=== PATIENT | female | born 1985 | race Caucasian/White ===

== ENCOUNTER 2017-11-17 13:37 | Emergency (ER) | payer SELFPAY ==
[~2017-11-17] VITALS: Ht 170.2 cm; Wt 65.0 kg
[2017-11-17 13:50] VITALS: BP 107/61; PULSE 80; RESP 16; TEMP 98; O2SAT 96
[2017-11-17] MEDS ORDERED: ZIPR1CAP10 PO (13:57)
[2017-11-17] MEDS ORDERED: MIRTA15 PO (13:57)
[2017-11-17] MEDS ORDERED: HYDR50TA94 PO (13:57)
[2017-11-17] MEDS ORDERED: SODIUM CHLORIDE 0.9% FLUSH 10 ML FLUSH IVF PRN (14:00)
--- NOTE | 2017-11-17 14:05 | PD ---
HPI Chief Complaint: Seizure Time Seen by Provider: 13:59 Travel History International Travel<30 days: No Contact w/Intl Traveler<30days: No Traveled to known affect area: No History of Present Illness HPI 32-year-old female presents to the emergency department via EMS for evaluation after a witnessed seizure. According to EMS, the patient Jamal Mckeon and had a seizure in the waiting room that was witnessed and lasted approximately less than 30 seconds. The patient appears to be under the influence of some sort of substance. She continually falls asleep during my exam. She does report a history of seizure disorder and states she her last seizure was yesterday. She states that she is not currently on any seizure medications. Patient is requesting a cigarette. She is also wanting to leave. However, she does not answer my questions appropriately and does not appear to be able to make this decision at this time. She does not know the year or the month and thinks the president is Cb Gruber on my initial exam. Moderate severity. PFSH Past Medical History ?: Unknown Social History Alcohol Use: No Tobacco Use: Yes Substance Use: No Allergies-Medications (Allergen,Severity, Reaction): Coded Allergies: vancomycin (Verified Allergy, Unknown, RASHES, 11/17/17) Reported Meds & Prescriptions Reported Meds & Active Scripts Active Reported Hydroxyzine HCl 50 Mg Tab 100 Mg PO TID PRN Ziprasidone 60 Mg Cap 60 Mg PO BID Mirtazapine 15 Mg Tab 15 Mg PO HS Review of Systems Except as stated in HPI: all other systems reviewed are Neg Physical Exam Exam Limitations: Intoxication, Uncooperative Narrative GENERAL: Well-nourished, well-developed female patient, afebrile. SKIN: Focused skin assessment warm/dry. HEAD: Normocephalic. Atraumatic. EYES: No scleral icterus. No injection or drainage. NECK: Supple, trachea midline. No JVD or lymphadenopathy. CARDIOVASCULAR: Regular rate and rhythm without murmurs, gallops, or rubs. RESPIRATORY: Breath sounds equal bilaterally. No accessory muscle use. Lung sounds are clear to auscultation. GASTROINTESTINAL: Abdomen soft, non-tender, nondistended. No abdominal or pelvic pain to palpation. MUSCULOSKELETAL: No cyanosis, or edema. BACK: Nontender without obvious deformity. No CVA tenderness. Data Data Last Documented VS Vital Signs Date Time Temp Pulse Resp B/P (MAP) Pulse Ox O2 Delivery O2 Flow Rate FiO2 11/17/17 13:50 98.0 80 16 107/61 (76) 96 Orders Orders Complete Blood Count With Diff (11/17/17 13:59) Alcohol (Ethanol) (11/17/17 13:59) Drug Screen, Random Urine (11/17/17 13:59) Ct Brain W/O Iv Contrast(Rout) (11/17/17 ) Blood Glucose (11/17/17 13:59) Ecg Monitoring (11/17/17 13:59) Iv Access Insert/Monitor (11/17/17 13:59) Oximetry (11/17/17 13:59) Comprehensive Metabolic Panel (11/17/17 13:59) Sodium Chloride 0.9% Flush (Ns Flush) (11/17/17 14:00) Ua Includes Microscopic (11/17/17 13:59) Magnesium (Mg) (11/17/17 13:59) Ed Urine Pregnancytest Poc (11/17/17 13:59) Nicotine 14 Mg Patch.24 Hr (Habitrol 14 (11/17/17 15:45) Labs Laboratory Tests Test 11/17/17 14:05 11/17/17 16:30 White Blood Count 6.2 TH/MM3 Red Blood Count 3.78 MIL/MM3 Hemoglobin 11.6 GM/DL Hematocrit 33.6 % Mean Corpuscular Volume 88.9 FL Mean Corpuscular Hemoglobin 30.6 PG Mean Corpuscular Hemoglobin Concent 34.5 % Red Cell Distribution Width 15.2 % Platelet Count 212 TH/MM3 Mean Platelet Volume 7.8 FL Neutrophils (%) (Auto) 36.9 % Lymphocytes (%) (Auto) 52.6 % Monocytes (%) (Auto) 7.9 % Eosinophils (%) (Auto) 2.0 % Basophils (%) (Auto) 0.6 % Neutrophils # (Auto) 2.3 TH/MM3 Lymphocytes # (Auto) 3.2 TH/MM3 Monocytes # (Auto) 0.5 TH/MM3 Eosinophils # (Auto) 0.1 TH/MM3 Basophils # (Auto) 0.0 TH/MM3 CBC Comment DIFF FINAL Differential Comment Blood Urea Nitrogen 8 MG/DL Creatinine 0.84 MG/DL Random Glucose 81 MG/DL Total Protein 6.6 GM/DL Albumin 3.6 GM/DL Calcium Level 8.7 MG/DL Magnesium Level 1.9 MG/DL Alkaline Phosphatase 57 U/L Aspartate Amino Transf (AST/SGOT) 30 U/L Alanine Aminotransferase (ALT/SGPT) 21 U/L Total Bilirubin 0.4 MG/DL Sodium Level 143 MEQ/L Potassium Level 3.6 MEQ/L Chloride Level 108 MEQ/L Carbon Dioxide Level 28.4 MEQ/L Anion Gap 7 MEQ/L Estimat Glomerular Filtration Rate 79 ML/MIN Ethyl Alcohol Level LESS THAN 3 MG/DL MDM Medical Decision Making Medical Screen Exam Complete: Yes Emergency Medical Condition: Yes Medical Record Reviewed: Yes Differential Diagnosis Breakthrough seizure versus recurrent seizures versus seizure disorder versus electrolyte abnormality versus drug intoxication Narrative Course 32-year-old female presents to the emergency department via EMS after she had a witnessed seizure. She does report a history of seizures to me. She does appear to be under the influence. CBC, CMP, magnesium, urine drug screen, UA, urine test, alcohol level are ordered and pending. CT of the brain is ordered and pending. CBC shows no acute abnormality. CMP shows no acute abnormality. Magnesium is 1.9. UA is pending. UDS is pending. UPT is negative. Alcohol level is less than [address] to have CT scan done. She is requesting to leave AGAINST MEDICAL ADVICE. On reevaluation, she is walking with a steady gait. She is alert and oriented to person, place, time. She is answering all questions appropriately. She is requesting to leave. She does know that I do not know if there is anything emergently wrong as she has not let me complete my workup. She states she understands. She does appear capable of making her own decisions at this time. AMA: The risks of leaving against medical advice without further evaluation treatment were discussed with the patient. These risks include cardiac dysfunction, cardiac dysrhythmia, possible heart attack, possible stroke or . The patient indicated understanding of these risks and appeared to have the capacity to make this decision. Diagnosis Primary Impression: Left against medical advice Disposition: 07 AGAINST MEDICAL ADVICE Camille Rebolledo November 17, 2017 14:05
[2017-11-17 14:16] LABS: AUTOMATED NEUTROPHIL # 2.3 TH/MM3 (1.8-7.7); BASOPHIL % 0.6 % (0.0-2.0); EOSINOPHIL # 0.1 TH/MM3 (0-0.4); HEMATOCRIT 33.6 % (35.0-46.0); HEMOGLOBIN 11.6 GM/DL (11.6-15.3); LYMPH % 52.6 % (9.0-44.0); LYMPHOCYTE # 3.2 TH/MM3 (1.0-4.8); MEAN CELL VOLUME 88.9 FL (80.0-100.0); MEAN CORPUSCULAR HEMOGLOBIN 30.6 PG (27.0-34.0); MEAN CORPUSCULAR HGB CONC 34.5 % (32.0-36.0); MEAN PLATELET VOLUME 7.8 FL (7.0-11.0); MONO % 7.9 % (0.0-8.0); MONOCYTE # 0.5 TH/MM3 (0-0.9); NEUT % 36.9 % (16.0-70.0); PLATELET COUNT 212 TH/MM3 (150-450); RED BLOOD COUNT 3.78 MIL/MM3 (4.00-5.30); RED CELL DISTRIBUTION WIDTH 15.2 % (11.6-17.2); WHITE BLOOD COUNT 6.2 TH/MM3 (4.0-11.0)
[2017-11-17 14:34] LABS: ALBUMIN 3.6 GM/DL (3.4-5.0); ALT (GPT) 21 U/L (10-53); AST (GOT) 30 U/L (15-37); BICARBONATE 28.4 MEQ/L (21.0-32.0); BLOOD UREA NITROGEN 8 MG/DL (7-18); CALCIUM 8.7 MG/DL (8.5-10.1); CHLORIDE 108 MEQ/L (98-107); CREATININE 0.84 MG/DL (0.50-1.00); GLOMERULAR FILTRATION RATE 79 ML/MIN (>89); GLUCOSE,RANDOM 81 MG/DL (74-106); MAGNESIUM 1.9 MG/DL (1.5-2.5); SODIUM (NA) 143 MEQ/L (136-145)
[2017-11-17 14:36] LABS: ALKALINE PHOSPHATASE 57 U/L (45-117); TOTAL BILIRUBIN ADULT 0.4 MG/DL (0.2-1.0); TOTAL PROTEIN 6.6 GM/DL (6.4-8.2)
[2017-11-17] MEDS ORDERED: NICOTINE 14 MG/24 HR PATCH T-DERMAL ONE (15:45)
[2017-11-17 17:11] LABS: BACTERIA, URINE RARE /hpf; BILIRUBIN, URINE NEG (NEG); BLOOD, URINE NEG (NEG); GLUCOSE,URINE NEG (NEG); KETONE, URINE TRACE mg/dL (NEG); MUCUS URINE MANY /lpf (OCC); NITRITE,URINE NEG (NEG); PH, URINE 5.5 (5.0-8.5); SQUAMOUS EPITHELIAL CELL URINE 44 /hpf (0-5); URINE COLOR YELLOW (YELLW/STRAW); URINE LEUKOCYTE ESTERASE LARGE (NEG)
== END 2017-11-17 17:55 | disposition left against medical advice (07) ==
LOC: NEPE 13:37
DX: G40.909 Epilepsy, unspecified, not intractable, without status epilepticus (principal); Z72.0 Tobacco use; Z79.899 Other long term (current) drug therapy
CPT/HCPCS: 80053; 80307; 81001; 83735; 84703; 85025; 99283

== ENCOUNTER 2017-12-16 15:32 | Inpatient (IN) | payer SELFPAY ==
[~2017-12-16] VITALS: Ht 170.2 cm; Wt 63.5 kg
[~2017-12-16 15:32] MED LIST: HYDR50TA94 PO; MIRTA15 PO; ZIPR1CAP10 PO
[2017-12-16 15:43] VITALS: BP 128/76; PULSE 58; RESP 16; TEMP 98.5
[2017-12-16] MEDS ORDERED: PIPERACIL-TAZO 4.5 GM PREMIX 100 ML IV STA (17:43)
[2017-12-16] MEDS ORDERED: CLINDAMYCIN INJ 900 MG in SODIUM CHLORIDE 0.9% INJ 100 ML IV STA (17:43)
[2017-12-16 18:05] VITALS: RESP 17; O2SAT 97
[2017-12-16 18:31] LABS: BASOPHIL # 0.1 TH/MM3 (0-0.2); BASOPHIL % 0.5 % (0.0-2.0); EOSINOPHIL # 0.4 TH/MM3 (0-0.4); EOSINOPHIL % 3.6 % (0.0-4.0); HEMATOCRIT 36.9 % (35.0-46.0); HEMOGLOBIN 12.6 GM/DL (11.6-15.3); LYMPH % 25.8 % (9.0-44.0); LYMPHOCYTE # 3.2 TH/MM3 (1.0-4.8); MEAN CELL VOLUME 89.2 FL (80.0-100.0); MEAN CORPUSCULAR HEMOGLOBIN 30.4 PG (27.0-34.0); MEAN CORPUSCULAR HGB CONC 34.1 % (32.0-36.0); MEAN PLATELET VOLUME 7.8 FL (7.0-11.0); MONO % 5.9 % (0.0-8.0); MONOCYTE # 0.7 TH/MM3 (0-0.9); NEUT % 64.2 % (16.0-70.0); PLATELET COUNT 217 TH/MM3 (150-450); RED BLOOD COUNT 4.14 MIL/MM3 (4.00-5.30); RED CELL DISTRIBUTION WIDTH 13.7 % (11.6-17.2); WHITE BLOOD COUNT 12.4 TH/MM3 (4.0-11.0)
[2017-12-16 18:42] LABS: ALBUMIN 3.1 GM/DL (3.4-5.0); AST (GOT) 11 U/L (15-37); BICARBONATE 27.2 MEQ/L (21.0-32.0); BLOOD UREA NITROGEN 7 MG/DL (7-18); CALCIUM 8.8 MG/DL (8.5-10.1); CHLORIDE 103 MEQ/L (98-107); GLOMERULAR FILTRATION RATE 83 ML/MIN (>89); GLUCOSE,RANDOM 105 MG/DL (74-106); SODIUM (NA) 139 MEQ/L (136-145)
[2017-12-16 18:43] LABS: ALT (GPT) 13 U/L (10-53)
[2017-12-16] MEDS ORDERED: CLINDAMYCIN 900 MG/NS PREMIX 50 ML IV ONE (18:45)
[2017-12-16 18:46] LABS: ALKALINE PHOSPHATASE 74 U/L (45-117); TOTAL BILIRUBIN ADULT 0.2 MG/DL (0.2-1.0); TOTAL PROTEIN 6.8 GM/DL (6.4-8.2)
--- NOTE | 2017-12-16 19:10 | PD ---
HPI Chief Complaint: Facial Pain or Swelling Time Seen by Provider: 17:43 Travel History International Travel<30 days: No Contact w/Intl Traveler<30days: No Traveled to known affect area: No History of Present Illness HPI 32-year-old female patient with history of IV drug use, presents to the ER today because she states that she had fallen on the table and hit her right forehead a few days ago, had a cut there and it started to turn into pus, and she was squeezing the pus out and today states that her face is getting more swollen. She denies any other issues. Modifying Factors: None Associated Signs & Symptoms: Right face swelling, injury, pus drainage Risk Factors: IV drug use PFSH Past Medical History ADHD: Yes Bipolar Disorder: Yes Anxiety: Yes Depression: Yes (MANIC ) Diminished Hearing: No Medical other: Yes (IV DRUG USE ) Psychiatric: Yes (PTSD ) Immunizations Current: Yes Tetanus Vaccination: Unknown Influenza Vaccination: No ?: Unknown LMP: depo Social History Alcohol Use: No (DENIES) Tobacco Use: Yes Substance Use: Yes (IV DRUG USER -OPIATES AND HEROIN) Allergies-Medications (Allergen,Severity, Reaction): Coded Allergies: vancomycin (Verified Allergy, Unknown, RASHES, 12/16/17) Reported Meds & Prescriptions Reported Meds & Active Scripts Active Reported Hydroxyzine HCl 50 Mg Tab 100 Mg PO TID PRN Ziprasidone 60 Mg Cap 60 Mg PO BID Mirtazapine 15 Mg Tab 15 Mg PO HS Review of Systems Except as stated in HPI: all other systems reviewed are Neg Physical Exam Narrative GENERAL: Thin young white female patient currently in moderate distress. Awake and oriented 3. SKIN: Focused skin assessment warm/dry. Notable track mobley on both arms. HEAD: There is a notable pustule to the right lateral zygomatic arch area, significant surrounding edema and erythema of the right cheek going up to the temporal and forehead area with induration. Normocephalic. EYES: Pupils equal and round. No scleral icterus. No injection or drainage. ENT: No nasal bleeding or discharge. Mucous membranes pink and moist. NECK: Trachea midline. No JVD. CARDIOVASCULAR: Regular rate and rhythm. No murmur appreciated. RESPIRATORY: No accessory muscle use. Clear to auscultation. Breath sounds equal bilaterally. GASTROINTESTINAL: Abdomen soft, non-tender, nondistended. Hepatic and splenic margins not palpable. MUSCULOSKELETAL: No obvious deformities. No clubbing. No cyanosis. No edema. NEUROLOGICAL: Awake and alert. No obvious cranial nerve deficits. Motor grossly within normal limits. Normal speech. PSYCHIATRIC: Appropriate mood and affect; insight and judgment normal. Data Data Last Documented VS Vital Signs Date Time Temp Pulse Resp B/P (MAP) Pulse Ox O2 Delivery O2 Flow Rate FiO2 12/16/17 19:12 96 18 122/62 (82) 98 Room Air 12/16/17 15:43 98.5 Orders Orders Sepsis Workup Initiated (12/16/17 ) Complete Blood Count With Diff (12/16/17 17:43) Comprehensive Metabolic Panel (12/16/17 17:43) Lactic Acid Sepsis Protocol (12/16/17 17:43) Blood Culture (12/16/17 17:43) Blood Glucose (12/16/17 17:43) Ecg Monitoring (12/16/17 17:43) Iv Access Insert/Monitor (12/16/17 17:43) Oximetry (12/16/17 17:43) Oxygen Administration (12/16/17 17:43) Piperacil-Tazo 4.5 Gm Premix (Zosyn 4.5 (12/16/17 17:43) Ct Facial Bones W Iv Contrast (12/16/17 ) Clindamycin 900 Mg/Ns Premix (Cleocin 90 (12/16/17 18:45) Labs Laboratory Tests Test 12/16/17 18:08 12/16/17 18:15 Lactic Acid Level 1.4 mmol/L White Blood Count 12.4 TH/MM3 Red Blood Count 4.14 MIL/MM3 Hemoglobin 12.6 GM/DL Hematocrit 36.9 % Mean Corpuscular Volume 89.2 FL Mean Corpuscular Hemoglobin 30.4 PG Mean Corpuscular Hemoglobin Concent 34.1 % Red Cell Distribution Width 13.7 % Platelet Count 217 TH/MM3 Mean Platelet Volume 7.8 FL Neutrophils (%) (Auto) 64.2 % Lymphocytes (%) (Auto) 25.8 % Monocytes (%) (Auto) 5.9 % Eosinophils (%) (Auto) 3.6 % Basophils (%) (Auto) 0.5 % Neutrophils # (Auto) 8.0 TH/MM3 Lymphocytes # (Auto) 3.2 TH/MM3 Monocytes # (Auto) 0.7 TH/MM3 Eosinophils # (Auto) 0.4 TH/MM3 Basophils # (Auto) 0.1 TH/MM3 CBC Comment DIFF FINAL Differential Comment Blood Urea Nitrogen 7 MG/DL Creatinine 0.80 MG/DL Random Glucose 105 MG/DL Total Protein 6.8 GM/DL Albumin 3.1 GM/DL Calcium Level 8.8 MG/DL Alkaline Phosphatase 74 U/L Aspartate Amino Transf (AST/SGOT) 11 U/L Alanine Aminotransferase (ALT/SGPT) 13 U/L Total Bilirubin 0.2 MG/DL Sodium Level 139 MEQ/L Potassium Level 3.8 MEQ/L Chloride Level 103 MEQ/L Carbon Dioxide Level 27.2 MEQ/L Anion Gap 9 MEQ/L Estimat Glomerular Filtration Rate 83 ML/MIN [facility] Medical Decision Making Medical Screen Exam Complete: Yes Emergency Medical Condition: Yes Medical Record Reviewed: Yes Differential Diagnosis Facial cellulitis versus abscess Narrative Course I do not palpate an abscess but CAT scan the face was also ordered for further evaluation. IV antibiotics were initiated in the ER. Planning to admit for further treatment of facial cellulitis. Case is discussed with family practice resident service for admission. Diagnosis Primary Impression: Facial cellulitis Admitting Information Admitting Physician Requests: Admit Donte Winters MD Dec 16, 2017 19:10
[2017-12-16 19:12] VITALS: BP 122/62; PULSE 96; RESP 18; O2SAT 98
--- NOTE | 2017-12-16 20:43 | HHI.HP ---
HPI Service Family Medicine Primary Care Physician No Primary Care Physician Admission Diagnosis Sepsis/facial cellulitis Diagnoses: International Travel<30 Days: No Contact w/Intl Traveler<30days: No Known Affected Area: No History of Present Illness 32-year-old female with history of IV drug abuse presenting with 3 day history of right facial swelling around the eye. Symptoms were started after she was standing up and banged her right forehead on a shelf above her. She had a break in the skin at that time, which started to heal well at first. However, over the next day her eye got progressively more red and swollen and started to leak some pus. She has difficulty opening her eye. Denies trauma or assault. She has some pain with eye movement. No double vision, although it is difficult for her to open her eye to tell. No fevers, some mild chills or nausea. Regarding her IV drug abuse, she is used oral opiates as well as heroin , last use of heroin was yesterday. History of cocaine abuse in the past as well, last use over a year ago. Review of Systems Constitutional: COMPLAINS OF: Chills, DENIES: Fever Endocrine: DENIES: Heat/cold intolerance Eyes: COMPLAINS OF: Eye pain, Photosensitivity, DENIES: Blurred vision, Diplopia Ears, nose, mouth, throat: DENIES: Nasal discharge, Throat pain Respiratory: DENIES: Cough, Wheezing, Shortness of breath Cardiovascular: DENIES: Chest pain, Palpitations Gastrointestinal: COMPLAINS OF: Nausea, DENIES: Abdominal pain, Constipation, Diarrhea, Vomiting Genitourinary: DENIES: Abnormal vaginal bleeding, Urinary frequency Musculoskeletal: COMPLAINS OF: Muscle aches, DENIES: Joint pain Integumentary: COMPLAINS OF: Rash Hematologic/lymphatic: DENIES: Bruising Immunologic/allergic: DENIES: Urticaria Neurologic: DENIES: Localized weakness, Paresthesias Psychiatric: COMPLAINS OF: Anxiety, Depression, DENIES: Confusion, Suicidal Ideation Past Family Social History Past Medical History IV drug abuse 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 Past Surgical History R thumb amputation carpal tunnel surgery on right Reported Medications Reported Meds & Active Scripts Active Reported Hydroxyzine HCl 50 Mg Tab 100 Mg PO TID PRN Ziprasidone 60 Mg Cap 60 Mg PO BID Mirtazapine 15 Mg Tab 15 Mg PO HS Also reports taking Klonopin BID, but E-FORCSE query does not verify this ( shows Subutex 8-2 mg, last filled October 2017) Allergies: Coded Allergies: vancomycin (Verified Allergy, Unknown, RASHES, 12/16/17) Active Ordered Medications Current Medications Medications (Trade) Dose Ordered Sig/Umberto Route Start Time Stop Time Status Last Admin (NS Flush) 2 ml UNSCH PRN IV FLUSH 12/16/17 20:45 (NS Flush) 2 ml BID IV FLUSH 12/16/17 21:00 12/16/17 21:00 (Tylenol) 650 mg Q4H PRN PO 12/16/17 20:45 (Narcan Inj) 0.4 mg UNSCH PRN IV PUSH 12/16/17 20:45 (Selene-Colace) 1 tab BID PO 12/16/17 21:00 (Milk Of Magnesia Liq) 30 ml Q12H PRN PO 12/16/17 20:45 (Senokot) 17.2 mg Q12H PRN PO 12/16/17 20:45 (Dulcolax Supp) 10 mg DAILY PRN RECTAL 12/16/17 20:45 (Lactulose Liq) 30 ml DAILY PRN PO 12/16/17 20:45 (Toradol Inj) 30 mg Q6HR IV PUSH 12/16/17 20:45 12/21/17 20:44 12/16/17 21:13 Pharmacy Profile Note 0 ml @ 0 mls/hr UNSCH OTHER 12/16/17 20:45 Piperacillin Sod/ Tazobactam Sod 100 ml @ 200 mls/hr Q8H IV 12/17/17 02:00 (Atarax) 100 mg TID PRN PO 12/16/17 20:45 (Remeron) 15 mg HS PO 12/16/17 21:00 12/16/17 23:17 (Geodon) 60 mg BID PO 12/16/17 21:00 12/16/17 23:10 Vancomycin HCl 1250 mg/Sodium Chloride 262.5 ml @ 180 mls/hr DAILY@2300 IV 12/16/17 23:00 12/17/17 04:00 12/16/17 23:10 Family History Family history of substance abuse and psychiatric disorders (unspecified) Social History Tob - 1.5 PPD since age 11 Alc - denies Drugs - see HPI Lives with a friend Unemployed, formerly in manufacturing work Physical Exam Vital Signs Vital Signs Date Time Temp Pulse Resp B/P (MAP) Pulse Ox O2 Delivery O2 Flow Rate FiO2 12/16/17 19:12 96 18 122/62 (82) 98 Room Air 12/16/17 18:05 97 Room Air 12/16/17 18:05 17 97 12/16/17 15:43 98.5 58 16 128/76 (93) Physical Exam GENERAL: Well-developed, well-nourished adult white female sitting up in bed, anxious, no acute distress SKIN: Periorbital edema and erythema on the right side of the face, tender to palpation. No purulent material able to be expressed. HEAD: NC/AT EYES: Slightly dilated bilaterally but equal and reactive. EOMI but pain with eye motion on right. No conjunctival injection or drainage. ENT: MMM, OP without erythema, tonsillar swelling, or exudate. NECK: Supple, no lymphadenopathy. No JVD. CARDIOVASCULAR: NRRR. Normal S1/S2. No MRG RESPIRATORY: CTAB. No crackles or wheezes. GASTROINTESTINAL: Abdomen soft, non-distended, non-tender. No hepato- splenomegaly or palpable masses. MUSCULOSKELETAL: Extremities without clubbing, cyanosis, or edema. NEUROLOGICAL: Awake and alert. Cranial nerves II through XII grossly intact. Moves all extremities without difficulty. Normal speech. Laboratory Laboratory Tests Test 12/16/17 18:08 12/16/17 18:15 Lactic Acid Level 1.4 White Blood Count 12.4 Red Blood Count 4.14 Hemoglobin 12.6 Hematocrit 36.9 Mean Corpuscular Volume 89.2 Mean Corpuscular Hemoglobin 30.4 Mean Corpuscular Hemoglobin Concent 34.1 Red Cell Distribution Width 13.7 Platelet Count 217 Mean Platelet Volume 7.8 Neutrophils (%) (Auto) 64.2 Lymphocytes (%) (Auto) 25.8 Monocytes (%) (Auto) 5.9 Eosinophils (%) (Auto) 3.6 Basophils (%) (Auto) 0.5 Neutrophils # (Auto) 8.0 Lymphocytes # (Auto) 3.2 Monocytes # (Auto) 0.7 Eosinophils # (Auto) 0.4 Basophils # (Auto) 0.1 CBC Comment DIFF FINAL Differential Comment Blood Urea Nitrogen 7 Creatinine 0.80 Random Glucose 105 Total Protein 6.8 Albumin 3.1 Calcium Level 8.8 Alkaline Phosphatase 74 Aspartate Amino Transf (AST/SGOT) 11 Alanine Aminotransferase (ALT/SGPT) 13 Total Bilirubin 0.2 Sodium Level 139 Potassium Level 3.8 Chloride Level 103 Carbon Dioxide Level 27.2 Anion Gap 9 Estimat Glomerular Filtration Rate 83 Date/Time Source Procedure Growth Status 12/16/17 18:15 Blood Peripheral Aerobic Blood Culture Pending Received 12/16/17 18:15 Blood Peripheral Anaerobic Blood Culture Pending Received Result Diagram: 12/16/17181412/16/17 1815 Imaging Last Impressions Maxillofacial CT 12/16/17 0000 Signed Impressions: CONCLUSION: 1. Right periorbital and temporal soft tissue swelling that extends over th e bridge of the nose without abscess. Caprini VTE Risk Assessment Caprini VTE Risk Assessment: No/Low Risk (score <= 1) Assessment and Plan Assessment and Plan 32-year-old female with history of IV drug abuse presenting with: #1 facial cellulitis Exam and history were consistent with periorbital versus orbital cellulitis CT maxillofacial did not show any evidence of post septal soft tissue edema WBC elevated Does not meet sepsis criteria Patient reports history of MRSA -Vancomycin dosed per pharmacy -Zosyn 4.5 g IV every 8 hours -Once improves clinically, can transition to oral antibiotic to cover for MRSA #2 Opiate withdrawal Patient has some nausea and malaise and body aches consistent with opiate withdrawal -Check urine drug screen -Continue home hydroxyzine 100 mg 3 times daily as needed for withdrawal symptoms -Consult case management to assist with resource coordination for addiction treatment 3. IV drug abuse See above plan for opiate withdrawal 4. Tobacco use Patient declines nicotine patch while in the hospital #5 Mood disorder not otherwise specified Symptoms stable, continue home Geodon and Remeron Fluids: Oral only Electrolytes: Monitor and replace as needed Nutrition diet regular basic DVT prophylaxis not indicated due to low risk Code Status Full code Discussed Condition With ER physician Problem List: (1) Facial cellulitis ICD Codes: L03.211 - Cellulitis of face Status: Acute (2) Opiate withdrawal ICD Codes: F11.23 - Opioid dependence with withdrawal Status: Acute (3) IV drug abuse ICD Codes: F19.10 - Other psychoactive substance abuse, uncomplicated Status: Chronic (4) Tobacco use ICD Codes: Z72.0 - Tobacco use Status: Chronic (5) Mood disorder ICD Codes: F39 - Unspecified mood [affective] disorder Status: Chronic Physician Certification 2 Midnight Certification Type: Admission for Inpatient Services Order for Inpatient Services The services are ordered in accordance with Medicare regulations or non- Medicare payer requirements, as applicable. In the case of services not specified as inpatient-only, they are appropriately provided as inpatient services in accordance with the 2-midnight benchmark. Estimated LOS (days): 2 days is the estimated time the patient will need to remain in the hospital, assuming treatment plan goals are met and no additional complications. Post-Hospital Plan: Home Rolando Cruz MD R2 Dec 16, 2017 20:43
[2017-12-16] MEDS ORDERED: MAGNESIUM HYDROXIDE SUSP 30 ML CUP PO PRN (20:45)
[2017-12-16] MEDS ORDERED: BISACODYL 10 MG SUPP RECTAL PRN (20:45)
[2017-12-16] MEDS ORDERED: ACETAMINOPHEN 325 MG TAB PO PRN (20:45)
[2017-12-16] MEDS ORDERED: LACTULOSE SYRUP 20 GM/30 ML CUP PO PRN (20:45)
[2017-12-16] MEDS ORDERED: SENNOSIDES 8.6 MG TAB PO PRN (20:45)
[2017-12-16] MEDS ORDERED: SODIUM CHLORIDE 0.9% FLUSH 10 ML FLUSH IV FLUSH PRN (20:45)
[2017-12-16] MEDS ORDERED: Vancomycin Consult Pharmacy 1 EA OTHER SCH (20:45)
[2017-12-16] MEDS ORDERED: hydrOXYzine HCL 50 MG TAB PO PRN (20:45)
[2017-12-16] MEDS ORDERED: NALOXONE HCL 0.4 MG/ML AMP IV PUSH PRN (20:45)
[2017-12-16] MEDS ORDERED: ZIPRASIDONE HCL 60 MG CAP PO SCH (21:00)
[2017-12-16] MEDS ORDERED: MIRTAZAPINE 15 MG TAB PO SCH (21:00)
[2017-12-16] MEDS ORDERED: SODIUM CHLORIDE 0.9% FLUSH 10 ML FLUSH IV FLUSH SCH (21:00)
[2017-12-16] MEDS: DOCUSATE SODIUM 50 MG/SENNA 8.6 MG TAB PO SCH ×2 (21:00→21:13)
[2017-12-16] MEDS: KETOROLAC TROMETHAMINE 30 MG/ML (IVP) VIAL IV PUSH SCH ×2 (21:13→23:20)
[2017-12-16] MEDS ORDERED: IOHEXOL 350 MG/ML 10 ML VIAL (for RAD DIAG) IVCONTRAST ONE (21:33)
--- NOTE | 2017-12-16 21:55 | RADRPT ---
EXAM DATE: 12/16/2017 9:35 PM EDT AGE/SEX: 32 years / Female INDICATIONS: Right eye swollen, bump on right side of head for two days. CLINICAL DATA: This is the patient's initial encounter. Patient reports that signs and symptoms have been present for 1 day and indicates a pain score of 4/10. MEDICAL/SURGICAL HISTORY: . IV drug use, ADHD None. RADIATION DOSE: 44.31 CTDI (mGy) COMPARISON: None . TECHNIQUE: Contiguous images in the axial and coronal planes were obtained using helical multirow de tector technique with 70 ml Omnipaque 350 (iohexol) nonionic water-soluble contrast as a single exam dose. Using automated exposure control and adjustment of the mA and/or kV according to patient size , radiation dose was kept as low as reasonably achievable to obtain optimal diagnostic quality images . FINDINGS: Orbits: The orbital and infraorbital osseous structures are intact. The retroconal structures have a normal configuration. No radiopaque foreign bodies are seen. Nasal Bone: The nasal bone and maxillary spine are intact. Zygomatic Arches: Symmetric without evidence of fracture. Sinuses: The maxillary, ethmoid and frontal sinuses are intact. No air-fluid levels seen. Nasal Cavity: The nasal septum is intact and midline. The lacrimal ducts are intact. Soft Tissues: No radiopaque foreign bodies seen. Periorbital soft tissue swelling on the right which is preseptal in nature. This extends over the bridge of the nose as well as laterally along the temp oral soft tissues. No fluid collection or abscess observed.. Intracranial: No intracranial air seen. Cribriform Plate: Grossly intact. Post Contrast: No abnormal areas of enhancement seen. CONCLUSION: 1. Right periorbital and temporal soft tissue swelling that extends over the bridge of the nose w ithout abscess. Electronically signed by: Damian Weinberg MD 12/16/2017 9:53 PM EDT
[2017-12-16] MEDS ORDERED: VANCOMYCIN INJ 1,250 MG in SODIUM CHLOR 0.9% 250 ML INJ 250 ML IV SCH ×4 (23:00)
[2017-12-17] VITALS: BP 105/65; PULSE 89; RESP 18; TEMP 99.7; O2SAT 99
[2017-12-17] MEDS ORDERED: PIPERACIL-TAZO 4.5 GM PREMIX 100 ML IV SCH (02:00)
[2017-12-17 04:00] VITALS: BP 119/58; PULSE 77; RESP 18; TEMP 98.4; O2SAT 99
[2017-12-17] MEDS: KETOROLAC TROMETHAMINE 30 MG/ML (IVP) VIAL IV PUSH SCH (06:00)
[2017-12-17] MEDS ORDERED: HYDR50TA94 PO (10:33)
[2017-12-17] MEDS ORDERED: BACT800T5 PO ×2 (10:33→10:34)
--- NOTE | 2017-12-17 10:34 | HHI.DCPOC ---
Discharge Care Plan Diagnosis: (1) Facial cellulitis (2) Opiate withdrawal Goals to Promote Your Health * To prevent worsening of your condition and complications * To maintain your health at the optimal level Directions to Meet Your Goals Take your medications as prescribed Follow your dietary instruction Follow activity as directed Keep your appointments as scheduled Take your immunizations and boosters as scheduled If your symptoms worsen call your PCP, if no PCP go to Urgent Care Center or Emergency Room Smoking is Dangerous to Your Health. Avoid second hand smoke Call the 24-hour hour crisis hotline for domestic abuse at Brittaney Mathew MD R1 Dec 17, 2017 10:34
[2017-12-17 12:21] LABS: AUTOMATED NEUTROPHIL # 11.5 TH/MM3 (1.8-7.7); BASOPHIL % 0.3 % (0.0-2.0); EOSINOPHIL # 0.1 TH/MM3 (0-0.4); EOSINOPHIL % 0.4 % (0.0-4.0); HEMATOCRIT 35.1 % (35.0-46.0); HEMOGLOBIN 11.7 GM/DL (11.6-15.3); LYMPH % 16.1 % (9.0-44.0); LYMPHOCYTE # 2.3 TH/MM3 (1.0-4.8); MEAN CELL VOLUME 89.7 FL (80.0-100.0); MEAN CORPUSCULAR HGB CONC 33.4 % (32.0-36.0); MEAN PLATELET VOLUME 8.4 FL (7.0-11.0); MONO % 3.6 % (0.0-8.0); MONOCYTE # 0.5 TH/MM3 (0-0.9); NEUT % 79.6 % (16.0-70.0); PLATELET COUNT 267 TH/MM3 (150-450); RED BLOOD COUNT 3.92 MIL/MM3 (4.00-5.30); RED CELL DISTRIBUTION WIDTH 13.5 % (11.6-17.2); WHITE BLOOD COUNT 14.4 TH/MM3 (4.0-11.0)
[2017-12-17 12:35] LABS: BICARBONATE 23.6 MEQ/L (21.0-32.0); CREATININE 0.81 MG/DL (0.50-1.00)
--- NOTE | 2017-12-17 18:04 | HHI.FPPN ---
Subjective Remarks Improvement noted. Patient is able to open the eye. States that she is withdrawing and wants to leave the hospital. Is already set up [facility] and has been trying to get a bed there. Endorses nausea and vomiting. Vomited 1 in the hospital. Has chills. Vital signs stable overnight. (Brittaney Mathew MD R1) Objective Vitals Vital Signs Date Time Temp Pulse Resp B/P (MAP) Pulse Ox O2 Delivery O2 Flow Rate FiO2 12/17/17 04:00 98.4 77 18 119/58 (78) 99 12/17/17 00:00 99.7 89 18 105/65 (78) 99 12/16/17 22:16 12/16/17 19:12 96 18 122/62 (82) 98 Room Air 12/16/17 18:05 97 Room Air 12/16/17 18:05 17 97 I/O 12/16/17 12/16/17 12/16/17 12/17/17 12/17/17 12/17/17 07:00 15:00 23:00 07:00 15:00 23:00 Intake Total 150 ml 262.5 ml Balance 150 ml 262.5 ml Intake IV Total 150 ml 262.5 ml # Voids 6 (Brittaney Mathew MD R1) Result Diagram: 12/17/17 1043 12/17/17 1043 Objective Remarks O. CONSTITUTIONAL/GEN: Patient appearing older than her stated age with a right red and swollen eye. Appears to be significantly uncomfortable and occasionally hunches forward in bed. States that she is nauseous. Patient appears disheveled. EYES: Extraocular motions intact. Patient is able to open and blink the right eye. No drainage noted from or around the eye. ENT: Mouth and pharynx normal. LUNGS: clear A-P, respiratory effort is normal. CARDIOVASCULAR: RR without murmur or gallop. No significant edema. NEURO: No focal deficits. Normal range of motion. SKIN: color normal, no rashes noted. Piloerection noted. HEME/LYMPH: no bruising, petechia. MUSC: Extremities are normal in appearance. PSYCH/MENTAL STATUS: Alert and oriented x 3. Appears agitated. (Brittaney aMthew MD R1) A/P Assessment and Plan 32-year-old female with history of IV drug abuse presenting with facial cellulitis. Treated with Vanco, Clinda, and Zosyn overnight. Improvement noted today. Patient would like to get back [facility] as she is withdrawing and extremely uncomfortable. Based on discussion patient, agreed to discharge patient today with oral antibiotics to continue treatment. Discharge Planning Discharge today. (Brittaney Mathew MD R1) Attending Attestation Patient seen and examined. Case reviewed and discussed with the resident team. Agree with plan of care as discussed with me and documented in the resident note. (Sheron Ball MD) Problem List: (1) Facial cellulitis ICD Codes: L03.211 - Cellulitis of face Status: Acute Plan: Improvement noted clinically. White count is downtrending. Vitals stable overnight, no fevers. Plan to discharge on Bactrim for a course of 10 days. (2) Opiate withdrawal ICD Codes: F11.23 - Opioid dependence with withdrawal Status: Acute Plan: Continue home hydroxyzine as needed for withdrawal (3) IV drug abuse ICD Codes: F19.10 - Other psychoactive substance abuse, uncomplicated Status: Chronic Plan: See above plan (4) Tobacco use ICD Codes: Z72.0 - Tobacco use Status: Chronic Plan: Patient is continue to smoke while in hospital. (5) Mood disorder ICD Codes: F39 - Unspecified mood [affective] disorder Status: Chronic Plan: Continue home Geodon and Remeron. (Brittaney Mathew MD R1) Brittaney Mathew MD R1 Dec 17, 2017 18:04 Sheron Ball MD Dec 17, 2017 18:13
== END 2017-12-17 11:51 | disposition home or self-care (01) | DRG 603 ==
LOC: NEPC 15:32 → NEDA 19:53 → N05A 22:06
PROVIDERS: ADMIT Family Medicine; ATTEND Family Medicine
DX: L03.211 Cellulitis of face (principal); F11.23 Opioid dependence with withdrawal; F43.10 Post-traumatic stress disorder, unspecified; F39 Unspecified mood [affective] disorder; F17.200 Nicotine dependence, unspecified, uncomplicated; Z81.3 Family history of other psychoactive substance abuse and dependence; Z81.8 Family history of other mental and behavioral disorders; Z86.14 Personal history of Methicillin resistant Staphylococcus aureus infection; Z88.1 Allergy status to other antibiotic agents; Z89.011 Acquired absence of right thumb
CPT/HCPCS: 70487; 80048; 80053; 83605; 85025; 87040; J1885; J2543; J3370; J7050; Q9967